=== PATIENT | female | born 1945 | race Hispanic/Latino ===

== ENCOUNTER 2016-11-07 09:20 | Outpatient (CLI) | payer MEDICARE ==
[2016-11-07] MEDS ORDERED: NACL ONE ×2 (09:40→09:45)
--- NOTE | 2016-11-07 11:29 | Cat Scan Report ---
CT ABDOMEN AND PELVIS WITH CONTRAST INDICATION: Cyst kidney. COMPARISON: 11/18/2013. FINDINGS: Abdomen and pelvis CT performed following intravenous administration of 100 cc of Omnipaque 300. LUNG BASES: Stable heart size, streak artifact from pacemaker leads, coronary calcifications and mildly elevated right hemidiaphragm anteriorly. Right mastectomy changes again partially imaged. Slight nonspecific distal esophageal prominence. No effusions. ABDOMEN: Stable cholecystectomy clips. Subtle fatty hepatic infiltration not excluded. Left hepatic lobe tip again extends into the left upper quadrant. No biliary dilatation. Otherwise unremarkable liver, spleen, pancreas, adrenals, nonaneurysmal abdominal aorta, IVC and non-hydronephrotic kidneys. No ascites or size significant adenopathy. Nonopacified GI tract evaluation limited, though nonobstructive. Right lower quadrant ileocolic anastomotic staple line again noted with nonspecific exaggerated wall thickness of approximately 6.6 cm possibly proximal ascending colon segment as on axial image 194, series 2, though less distended since the prior exam and now containing stool. Further distal ascending colon decompressed. Numerous transverse and descending colon diverticuli again seen. Few left hemiabdomen subcutaneous enhancing venous collaterals are more prominent since January 2013 exam, extending upto the left groin/left iliac/femoral vein as on axial image 363, series 2, amongst others. PELVIS: Urinary bladder, uterus, adnexa/ovaries grossly within normal limits. Few pelvic phleboliths. Few proximal sigmoid diverticuli. Sigmoid anastomotic suture line again noted with further distal rectal stool and stable slight exaggerated wall prominence/thickness. No pelvic free fluid or significant adenopathy. Demineralized bones with few mild spinal degenerative changes, including moderate L5-S1 disc narrowing. CONCLUSION: 1. No acute significant CT abnormality, though slightly greater prominence of left hemiabdomen subcutaneous venous collaterals noted since January 2013, as described. Right lower quadrant and rectal nonspecific CT appearance with postsurgical changes may be also correlated for clinically. 2. Various other incidental findings, including possible fatty liver, stable right mastectomy and cholecystectomy, diverticulosis, amongst others, as detailed above. Thank you for the opportunity to participate in this patient's care.
== END 2016-11-07 09:21 | disposition home or self-care (01) ==
LOC: CT 09:20
PROVIDERS: ATTEND Internal Medicine
DX: N28.1 Cyst of kidney, acquired (principal); I25.10 Atherosclerotic heart disease of native coronary artery without angina pectoris; Q79.1 Other congenital malformations of diaphragm; K76.0 Fatty (change of) liver, not elsewhere classified; I87.8 Other specified disorders of veins; K57.30 Diverticulosis of large intestine without perforation or abscess without bleeding; M47.897 Other spondylosis, lumbosacral region; Z95.0 Presence of cardiac pacemaker; Z90.49 Acquired absence of other specified parts of digestive tract; Z90.11 Acquired absence of right breast and nipple
CPT/HCPCS: 74177; Q9967

== ENCOUNTER 2018-10-08 09:46 | Outpatient (CLI) | payer MEDICARE ==
--- NOTE | 2018-10-08 11:26 | Vascular Lab Report ---
FINAL REPORT EXAM: VL VENOUS DUPLEX LE BILAT HISTORY: PAIN AND SWELLING LEFT AND RIGHT COMPARISON: None. TECHNIQUE: Duplex Doppler imaging of the veins of the bilateral lower extremities was performed. FINDINGS: The veins of the right lower extremity are patent, compressible, and demonstrate normal waveforms and augmentation. The veins of the left lower extremity are patent, compressible, and demonstrate normal waveforms and augmentation. IMPRESSION: No evidence of deep venous thrombosis of the bilateral lower extremities.
== END 2018-10-08 09:47 | disposition home or self-care (01) ==
LOC: VAS 09:46
PROVIDERS: ATTEND Internal Medicine
DX: M79.605 Pain in left leg (principal); M79.89 Other specified soft tissue disorders
CPT/HCPCS: 93970